=== PATIENT | female | born 1950 | race Caucasian/White ===

== ENCOUNTER 2017-05-09 18:24 | Emergency (ER) | payer MEDICARE, MEDICAID ==
[~2017-05-09] VITALS: Ht 165.1 cm; Wt 65.0 kg
[2017-05-09] MEDS ORDERED: IBUPROFEN 600MG TABLET PO ONE (19:00)
[2017-05-09 20:03] VITALS: BP 129/73
== END 2017-05-09 20:48 | disposition home or self-care (01) ==
LOC: ER 18:43
DX: S76.011A Strain of muscle, fascia and tendon of right hip, initial encounter (principal); S46.911A Strain of unspecified muscle, fascia and tendon at shoulder and upper arm level, right arm, initial encounter; I10 Essential (primary) hypertension; E11.9 Type 2 diabetes mellitus without complications; Z88.5 Allergy status to narcotic agent; Z88.6 Allergy status to analgesic agent; W01.0XXA Fall on same level from slipping, tripping and stumbling without subsequent striking against object, initial encounter; Y93.E1 Activity, personal bathing and showering; Y99.8 Other external cause status; Y92.89 Other specified places as the place of occurrence of the external cause
CPT/HCPCS: 71010; 72170; 73030; 73562; 99284; X7700; Z7610